=== PATIENT | male | born 1995 | race Caucasian/White ===

== ENCOUNTER 2022-04-14 16:37 | Emergency (ER) | payer OTHER ==
[~2022-04-14] VITALS: Ht 160 cm; Wt 68.0 kg
[2022-04-14 17:32] VITALS: BP 134/100
[2022-04-14] MEDS ORDERED: CIPR7.5D9 EACH EAR (18:27)
--- NOTE | 2022-04-14 19:01 | NUR ---
Patient discharged to home in stable condition. Written and verbal after care instructions given. Patient verbalizes understanding of instruction.
== END 2022-04-14 19:01 | disposition home or self-care (01) ==
LOC: ER 16:43
DX: H60.93 Unspecified otitis externa, bilateral (principal); Z79.899 Other long term (current) drug therapy